=== PATIENT | male | born 2000 | race Caucasian/White ===

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

== ENCOUNTER 2020-05-30 14:28 | Emergency (ER) | payer MEDICAID, SELFPAY ==
[2020-05-30 15:16] VITALS: BP 164/91; PULSE 91; RESP 14; TEMP 37.1; O2SAT 99; BMI 32.5
--- NOTE | 2020-05-30 15:22 | XRR_ITS ---
PROCEDURE INFORMATION: Exam: XR Chest, 2 Views Exam date and time: 05/30/2020 3:42 PM Age: 19 years old Clinical indication: Cough; Left-sided chest pain; Additional info: Cough. Blood in sputum TECHNIQUE: Imaging protocol: XR of the chest Views: 2 views. COMPARISON: No relevant prior studies available. FINDINGS: Lungs: Unremarkable. No consolidation. Pleural spaces: Unremarkable. No pleural effusion. No pneumothorax. Heart/Mediastinum: Unremarkable. No cardiomegaly. Bones/joints: Unremarkable. XR/XR chest 2V* [id number] IMPRESSION: No acute findings.
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
[2020-05-30 16:00] VITALS: BP 164/91; PULSE 91; RESP 16; O2SAT 96
--- NOTE | 2020-05-31 11:58 | DCPLANNER ---
global logistics manager had message to schedule a follow up appointment for patient with pain management. global logistics manager can not make referrals to pain management from the ER. global logistics manager called patient and informed patient of this, pillowcase sewer informed patient that the referral for pain management would need to come from patients primary care physician. global logistics manager asked patient if he had a primary care, patient stated that he did. global logistics manager offered to make an appointment for patient, he stated that he would make the appointment.
== END 2020-05-30 16:10 | disposition home or self-care (01) ==
PROVIDERS: Emergency Provider Nurse Practitioner Family; PCP Family Medicine
DX: J40 Bronchitis, not specified as acute or chronic (principal); G89.29 Other chronic pain; M25.511 Pain in right shoulder; Z87.891 Personal history of nicotine dependence
CPT/HCPCS: 12345; 71046; 99281; 99282

== ENCOUNTER 2020-06-27 13:12 | Outpatient (CLI) | payer MEDICAID, SELFPAY ==
--- NOTE | 2020-06-27 13:21 | CT_ITS ---
WS: [id number] CT ABDOMEN WITH CONTRAST HISTORY: UPPER ABDOMINAL PAIN Contiguous single phase 5 mm axial imaging performed to the abdomen. Oral contrast has been provided. Coronal and sagittal reformats are submitted. All CT scans at [facility] use at least on e of these dose optimization techniques: automated exposure control; mA and/or kV adjustment per zahida ent size (includes targeted exams where dose is matched to clinical indication); or iterative reconst ruction. CONTRAST: Omnipaque 300; 95 mL IV. DLP: 905.32 mGycm COMPARISON: 2018 Lower thorax: Unremarkable. Liver: Normal. No intrahepatic dilatation. Gallbladder: Normal. Pancreas: Normal. Spleen: 13.4 cm in length. No mass. Adrenals: Normal. Right kidney: Normal. Left kidney: Normal. Aorta: Normal. GI tract: Normal. No adenopathy or free fluid. Abdominal wall: No hernia. Visualized osseous structures: Unremarkable. CT/CT abdomen w con* [id number] IMPRESSION: 1. Normal abdomen CT. 2. No hiatal hernia.
[2020-06-27] MEDS: iohexol 300 mg/mL 50 mL Btl PO (13:46)
[2020-06-27] MEDS: iohexol 300 mg/mL 100 mL Btl IV (14:24)
== END 2020-06-27 13:13 | disposition home or self-care (01) ==
LOC: RADWPI 13:18
PROVIDERS: PCP Family Medicine; Visit Provider Nurse Practitioner
DX: R10.10 Upper abdominal pain, unspecified (principal)
CPT/HCPCS: 74160; Q9967

== ENCOUNTER 2021-11-18 19:05 | Emergency (ER) | payer MEDICAID, SELFPAY ==
[2021-11-18] VITALS (7 sets, daily range): BP systolic 123–136; BP diastolic 52–68; PULSE 60–85; RESP 16–84; TEMP 37.1; O2SAT 97–100; BMI 28.4
--- NOTE | 2021-11-18 19:42 | ED_ITS ---
HPI - Chest Pain General: Chief Complaint: Chest Pain Stated Complaint: Dizzy, light headed, chest pain Time Seen by Provider: 11/18/21 19:42 History of Present Illness: 20-year-old gentleman presenting for chest pain that started at work. Sharp pressure in the middle discussed and mild associated shortness of breath. No other typical cardiac features. Denies frequent similar episodes in the past. Intensity symptoms is moderate. Course has persisted. No other specific changes in health, exacerbating, or alleviating factors identified. Onset (ago): hour(s) Timing of current episode: constant Prior episodes: No Onset: during exertion Pain location: substernal Severity: moderate Relieving factors: nothing Exacerbating factors: movement Review of Systems General: Reports: 10 or more systems reviewed and unremarkable except in HPI and below PFSH ED PFSH: Medical History No significant past medical history Surgical History No significant past surgical history Family History Other Cancer Diabetes Social History Smoking and tobacco status: former smoker Quit status (tobacco): has quit using tobacco Year quit tobacco: 2020 Alcohol intake: never Physical Exam Const: COMMON NORMALS: alert GENERAL APPEARANCE: cooperative and well developed HENMT: COMMON NORMALS: normocephalic and atraumatic HEAD & SCALP: norm ocephalic and atraumatic THROAT: posterior oropharynx normal Eye: COMMON NORMALS: conjunctivae normal CONJUNCTIVA: Yes conjunctivae normal SCLERA: sclerae normal Neck/C-Spine: COMMON NORMALS: supple GENERAL: Yes trachea midline Chest: CHEST: No localized rib tenderness with anteroposterior compression Resp: COMMON NORMALS: normal respiratory effort and clear to auscultation bilaterally EFFORT & INSPECTION: Yes able to speak in complete sentences AUSCULTATION: clear to auscultation bilaterally Cardio: COMMON NORMALS: regular rate and regular rhythm RATE: regular rate RHYTHM: regular rhythm GI: COMMON NORMALS: Soft to palpation PALPATION: Yes Soft to palpation and No Tenderness to palpation present (GI) Extremity: GENERAL: Yes normal exam except as noted and No edema Neuro: COMMON NORMALS: moves all extremities SENSORIUM/ORIENTATION: Yes alert and No Orientation impaired Psych: COMMON NORMALS: mental status grossly normal and Normal thought process present THOUGHT PROCESS: Normal thought process present Course Vital Signs: Vital signs: Vital Signs Temperature 98.7 F 11/18/21 19:13 Pulse Rate 63 11/18/21 22:00 Respiratory Rate 16 11/18/21 22:00 Blood Pressure 127/59 11/18/21 22:00 Pulse Oximetry 99 11/18/21 22:00 Oxygen Delivery Me thod 11/18/21 22:00 MDM - Chest Pain Medical Decision Making 20-year-old male presenting due to chest pain. Patient nontoxic on exam. Laboratory studies without obvious cause. EKG with interventricular delay, no STEMI. Delta troponin negative. Negative chest x-ray. Mildly improved with IV fluids. Patient without high risk features and no risk factors ordered satisfactory for outpatient management. Medical Records I reviewed the patient's medical records. Lab Data I reviewed the patient's lab results. : 11/18/21 19:45 11/18/21 19:45 Radiology Impressions Chest X-Ray 11/18/21 19:45 IMPRESSION: No acute findings. Laboratory Results WBC 9.7 10^3/uL (4.5-13.0) 11/18/21 19:45 RBC 5.03 10^6/uL (4.1-5.3) 11/18/21 19:45 Hgb 15.1 g/dL (11.7-16.6) 11/18/21 19:45 Hct 45.4 % (42.0-52.0) 11/18/21 19:45 MCV 90.3 fl (80-94) 11/18/21 19:45 MCH 30.0 pg (28.0-34.0) 11/18/21 19:45 MCHC 33.3 g/dL (30.0-36.0) 11/18/21 19:45 RDW 12.5 % (12.1-15.1) 11/18/21 19:45 Plt Count 193 10^3/cmm (130-400) 11/18/21 19:45 MPV 9.5 fL (7.4-10.4) 11/18/21 19:45 Neut % (Auto) 60.1 % 11/18/21 19:45 Lymph % (Auto) 29.0 % 11/18/21 19:45 Lee % (Auto) 6.4 % 11/18/21 19:45 Eos % (Auto) 3.5 % 11/18/21 19:45 Baso % (Auto) 0.8 % 11/18/21 19:45 Neut # (Auto) 5.81 10^3/uL (1.8-8.0) 11/18/21 19:45 Lymph # (Auto) 2.8 10^3/uL (1.5-6.5) 11/18/21 19:45 Lee # (Auto) 0.6 10^3/uL (0.2-0.9) 11/18/21 19:45 Eos # (Auto) 0.3 10^3/uL (0.0-0.8) 11/18/21 19:45 Baso # (Auto) 0.1 10^3/uL (0.0-0.1) 11/18/21 19:45 Nucleated RBC % (auto) 0 % 11/18/21 19:45 Nucleated RBCs # 0.0 /100WBC 11/18/21 19:45 Sodium 137 mmol/L (136-145) 11/18/21 19:45 Potassium 4.1 mmol/L (3.5-5.1) 11/18/21 19:45 Chloride 102 mmol/L (98-107) 11/18/21 19:45 Carbon Dioxide 27 mmol/L (22-29) 11/18/21 19:45 Anion Gap 12.1 (5-19) 11/18/21 19:45 BUN 10 mg/dL (6-20) 11/18/21 19:45 Creatinine 0.8 mg/dL (0.7-1.2) 11/18/21 19:45 GFR Calculation 123.2 mL/min (90-130) 11/18/21 19:45 Glucose 95 mg/dL (65-115) 11/18/21 19:45 Calculated Osmolality 283 mOsm/kg (285-295) L 11/18/21 19:45 Calcium 9.2 mg/dL (8.5-10.5) 11/18/21 19:45 Total Bilirubin 0.3 mg/dL (0.15-1.2) 11/18/21 19:45 AST 14 U/L (0-40) 11/18/21 19:45 ALT 16 U/L (0-41) 11/18/21 19:45 Alkaline Phosphatase 93 IU/L (40-130) 11/18/21 19:45 Troponin T Baseline 6 ng/L (0-15) 11/18/21 19:45 Troponin T 120 Minute 6.00 ng/L (0-15) 11/18/21 21:44 Delta Troponin T 0 ABS# (0-10) 11/18/21 21:44 NT-Pro-B Natriuret Pep 24 pg/mL (0-125) 11/18/21 19:45 Total Protein 6.6 g/dL (6.6-8.7) 11/18/21 19:45 Albumin 4.6 g/dL (3.5-5.2) 11/18/21 19:45 Globulin 2.0 g/dL (1.3-4.6) 11/18/21 19:45 Lipase 16 U/L (13-60) 11/18/21 19:45 Discharge Plan Discharge Patient Disposition: Home Clinical Impression: Chest pain, Dizziness Condition: Stable Prescriptions: No Action fluoxetine 20 mg capsule 20 mg PO DAILY Qty: 30 0RF Rx Instructions: administer in the morning and at noon/midday montelukast 10 mg tablet 10 mg PO DAILY omeprazole 40 mg capsule,delayed release(DR/EC) 40 mg PO DAILY albuterol sulfate [ProAir HFA] 90 mcg/actuation HFA aerosol inhaler 2 puff INHALATION Q6H PRN sucralfate 1 gram tablet 1 gm PO Q6H trazodone 50 mg tablet 50 mg PO .COMPLEX Rx Instructions: 50 mg PO 1-2 tabs at bedtime; ibuprofen 800 mg tablet 800 mg PO TID PRN (Reason: pain) Qty: 60 1RF hydrocodone-acetaminophen [[place]] 5-325 mg tablet 1 tab PO Q6H PRN (Reason: pain) Rx Instructions: RX DATE 04/11/20 #10 [facility] tramadol 50 mg tablet 50 mg PO TID Qty: 14 0RF Discharge Orders: Discharge ED (Routine); Ordered 11/18/21 Ordered By: Willie Ramos Referrals: Mukul Pérez DO [Primary Care Provider] - Discharge Diet: Usual diet Discharge Activity: Increase activity as tolerated Patient Instructions: Chest Pain (ED), Dizziness (ED) Activity Restrictions/Additional Instructions: Thank you for visiting the emergency department. You were seen and evaluated for dizziness and chest pain. The exact cause of your symptoms is unclear. This may be partly due to dehydration. Please ensure that you are staying hydrated. Please follow-up with a primary care provider, I will message case management for referral to primary care. Return to the emergency department for worsening symptoms or anything else that you are concerned about a feel needs emergency department evaluation. Stand Alone Forms: Work/School Release Coding Level of Care Code ED Supervisor Instant Pot[employer] Processing for Jerry German
--- NOTE | 2021-11-18 19:45 | XRR_ITS ---
PROCEDURE INFORMATION: Exam: XR Chest Exam date and time: 11/18/2021 8:52 PM Age: 20 years old Clinical indication: Injury or trauma; Fall; Blunt trauma (contusions or hematomas); Additional info: Cp TECHNIQUE: Imaging protocol: Radiologic exam of the chest. Views: 1 view. COMPARISON: CR XR chest 2V* [id number] 05/30/2020 3:52 PM FINDINGS: Lungs: Unremarkable. No consolidation. Pleural spaces: Unremarkable. No pleural effusion. No pneumothorax. Heart/Mediastinum: Unremarkable. No cardiomegaly. Bones/joints: Unremarkable. XR/XR chest 1V portable [id number] IMPRESSION: No acute findings.
--- NOTE | 2021-11-18 19:45 | ECG_ITS ---
[facility] Test Date: 2021-11-18 Pat Name: Sabino Hull Department: Room: Gender: Male General Purchasing Agent: : 2000 Requested By: Willie Ramos Order Number: [id number] Raji MD: Armaan Pacheco M.D. Measurements Intervals [place] Rate: 56 P: 32 AR: 169 QRS: 85 QRSD: 113 T: 52 QT: 427 QTc: 414 Interpretive Statements SINUS BRADYCARDIA WITH SINUS ARRHYTHMIA MODERATE INTRAVENTRICULAR CONDUCTION DELAY [110+ ms QRS DURATION] No previous ECG available for comparison Electronically Signed On 11-19-2021 10:34:38 CDT by Armaan Pacheco M.D. [email or web address] Materialsregency meridianCrossing Automationadena pike medical center.[employer]/store/[id number] f
[2021-11-18 19:54] LABS: Basophils # 0.1 10^3/uL (0.0-0.1); Basophils % 0.8 %; Eosinophils # 0.3 10^3/uL (0.0-0.8); Eosinophils % 3.5 %; Hematocrit 45.4 % (42.0-52.0); Hemoglobin 15.1 g/dL (11.7-16.6); Lymphocytes # 2.8 10^3/uL (1.5-6.5); Mean Corpuscular HGB Conc 33.3 g/dL (30.0-36.0); Mean Corpuscular Volume 90.3 fl (80-94); Mean Platelet Volume 9.5 fL (7.4-10.4); Monocytes # 0.6 10^3/uL (0.2-0.9); Monocytes % 6.4 %; Neutrophils # 5.81 10^3/uL (1.8-8.0); Neutrophils % 60.1 %; Nucleated Red Blood Cells % 0 %; Platelet Count 193 10^3/cmm (130-400); Red Blood Count 5.03 10^6/uL (4.1-5.3); Red Cell Distribution Width 12.5 % (12.1-15.1); White Blood Count 9.7 10^3/uL (4.5-13.0)
[2021-11-18] MEDS: sodium chloride 0.9% 1,000 ML 999 ML IV (20:00)
[2021-11-18 20:21] LABS: Troponin(5th) Baseline 6 ng/L (0-15)
[2021-11-18 20:31] LABS: Alanine Aminotransferase 16 U/L (0-41); Albumin Level 4.6 g/dL (3.5-5.2); Alkaline Phosphatase 93 IU/L (40-130); Anion Gap 12.1 (5-19); Aspartate Amino Transferase 14 U/L (0-40); Blood Urea Nitrogen 10 mg/dL (6-20); Calcium 9.2 mg/dL (8.5-10.5); Carbon Dioxide 27 mmol/L (22-29); Chloride 102 mmol/L (98-107); Glomerular Filtration Rate 123.2 mL/min (90-130); Glucose 95 mg/dL (65-115); Lipase 16 U/L (13-60); NT Pro B Type Natriuretic Pept 24 pg/mL (0-125); Osmolality Calculated 283 mOsm/kg (285-295); Potassium 4.1 mmol/L (3.5-5.1); Sodium 137 mmol/L (136-145); Total Bilirubin 0.3 mg/dL (0.15-1.2); Total Protein 6.6 g/dL (6.6-8.7)
--- NOTE | 2021-11-18 21:45 | ECG_ITS ---
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 Measurements Intervals [place] Rate: 56 P: 41 MT: 176 QRS: 85 QRSD: 116 T: 54 QT: 425 QTc: 414 Interpretive Statements SINUS BRADYCARDIA WITH SINUS ARRHYTHMIA MODERATE INTRAVENTRICULAR CONDUCTION DELAY [110+ ms QRS DURATION] No previous ECG available for comparison Electronically Signed On 11-19-2021 10:38:28 CDT by Armaan Pacheco M.D. [email or web address] [email or web address]'s choice medical center of smith countyConsumer Agent Portal (CAP)[email or web address].[employer]/store/[id number]
[2021-11-18 22:12] LABS: Troponin 5 2HR Delta 0 ABS# (0-10)
--- NOTE | 2021-11-21 11:00 | DCPLANNER ---
e business manager had message to speak with patient about getting established with a primary care physician. e business manager called patient at phone number [phone], unable to speak with patient at this time, unable to leave a voicemail.
== END 2021-11-18 22:53 | disposition home or self-care (01) ==
PROVIDERS: Emergency Provider Emergency Medicine; PCP Family Medicine
DX: R07.9 Chest pain, unspecified (principal); R42 Dizziness and giddiness; Z87.891 Personal history of nicotine dependence
CPT/HCPCS: 71045; 80053; 83690; 83880; 84484; 85025; 93005; 96360; 99285; J7030

== ENCOUNTER 2022-01-08 22:18 | Emergency (ER) | payer MEDICAID, SELFPAY ==
[2022-01-08 22:47] VITALS: BP 117/71; PULSE 98; RESP 18; TEMP 36.3; O2SAT 98
[2022-01-08 22:59] VITALS: BP 139/71; PULSE 74; RESP 18; O2SAT 96
[2022-01-08] MEDS: ondansetron 2 mg/ML SDV 2 mL 4 MG IVP (23:13)
[2022-01-08 23:19] LABS: Basophils # 0.1 10^3/uL (0.0-0.1); Basophils % 0.5 %; Eosinophils # 0.3 10^3/uL (0.0-0.8); Eosinophils % 2.9 %; Hemoglobin 15.6 g/dL (11.7-16.6); Lymphocytes # 2.3 10^3/uL (0.8-4.8); Mean Corpuscular HGB Conc 33.9 g/dL (30.0-36.0); Mean Corpuscular Hemoglobin 30.8 pg (28.0-34.0); Mean Corpuscular Volume 90.7 fl (80-94); Mean Platelet Volume 9.8 fL (7.4-10.4); Monocytes % 8.6 %; Neutrophils # 7.39 10^3/uL (1.8-7.7); Neutrophils % 66.7 %; Nucleated Red Blood Cells % 0 %; Platelet Count 213 10^3/cmm (130-400); Red Blood Count 5.07 10^6/uL (4.1-5.3); Red Cell Distribution Width 12.6 % (12.1-15.1); White Blood Count 11.1 10^3/uL (4.0-10.0)
[2022-01-08 23:55] LABS: Alanine Aminotransferase 29 U/L (0-41); Albumin Level 4.3 g/dL (3.5-5.2); Alkaline Phosphatase 99 U/L (40-130); Anion Gap 15.7 (5-19); Aspartate Amino Transferase 17 U/L (0-40); Blood Urea Nitrogen 11 mg/dL (6-20); Calcium 9.7 mg/dL (8.5-10.5); Carbon Dioxide 22 mmol/L (22-29); Chloride 102 mmol/L (98-107); Globulin 2.5 g/dL (1.3-4.6); Glomerular Filtration Rate 106.5 mL/min (90-130); Glucose 95 mg/dL (65-115); Lipase 15 U/L (13-60); Osmolality Calculated 281 mOsm/kg (285-295); Potassium 3.7 mmol/L (3.5-5.1); Sodium 136 mmol/L (136-145); Total Bilirubin 0.7 mg/dL (0.15-1.2); Total Protein 6.8 g/dL (6.6-8.7)
--- NOTE | 2022-01-09 01:23 | ED_ITS ---
HPI - Abdominal Pain General: Chief Complaint: Abdominal Pain Stated Complaint: ABD PAIN Time Seen by Provider: 01/08/22 22:54 Source: patient Mode of arrival: ambulatory Limitations: no limitations History of Present Illness: See nursing assessment. Patient with complaints of sharp epigastric pain that is intermittent since Saturday evening. Denies any fever. He denies any nausea, vomiting, diarrhea, constipation. He denies any urinary symptoms. Denies any melena or bright red blood in his stool. He states he does have a past medical history of GERD and takes omeprazole 40 mg daily for that. He denies any allergies to medications. He states he does smoke occasional cigarettes but denies alcohol use. He has had an appendectomy in the past. He states pain is only located in the epigastrium. He denies any other pain. Radiation: none Migration to: no migration Exacerbating factors: eating Associated Symptoms: Denies chills, fever(s), hematochezia, hematemesis, melena, nausea and vomiting Treatments prior to arrival: other (Takes 40 mg of omeprazole daily.) Review of Systems Const: Denies: fever(s) or chills Eyes: Denies: change in vision ENMT: Denies: throat pain Card: Denies: chest pain or palpitations Resp: Denies: dyspnea or wheezing GI: Reports: abdominal pain; Denies: nausea, vomiting, hematemesis, hematochezia, melena or mucus in stool : Denies: flank pain Musc: Denies: neck pain or back pain Skin/Breast: Denies: rash or pruritus Neuro: Denies: headache(s) or numbness in extremities Psych: Denies: anxiety Loi/Lymph: Denies: enlarged lymph nodes PFSH ED PFSH: Medical History No significant past medical history Surgical History No significant past surgical history Family History Other Cancer Diabetes Social History Smoking and tobacco status: former smoker Quit status (tobacco): has quit using tobacco Year quit tobacco: 2019 Alcohol intake: never Supplemental [facility] Information: Possible history of GERD Physical Exam Const: COMMON NORMALS: no acute distress, patient oriented x3, alert and well nourished GENERAL APPEARANCE: cooperative HENMT: COMMON NORMALS: normocephalic and atraumatic HEAD & SCALP: normocephalic and atraumatic Eye: COMMON NORMALS: EOMs intact bilaterally Neck/C-Spine: COMMON NORMALS: full ROM, no lymphadenopathy, supple and no JVD Lymph: LYMPHATIC: no lymphadenopathy noted Chest: COMMONS NORMALS: normal inspection of the chest and normal palpation of entire chest wall Resp: COMMON NORMALS: normal respiratory effort, No retractions, No use of accessory muscles and clear to auscultation bilaterally AUSCULTATION: clear to auscultation bilaterally Cardio: COMMON NORMALS: no JVD, regular rate, regular rhythm and Peripheral pulses 2+ throughout RATE: regular rate RHYTHM: regular rhythm PERIPHERAL PULSES: Peripheral pulses 2+ throughout GI: COMMON NORMALS: Normal to inspection, nondistended, normoactive bowel sounds present and Soft to palpation PALPATION: Yes Soft to palpation OTHER: Moderate epigastric abdominal pain with deep palpation. No masses palpated no bruits. No pulsatile masses. No hepatosplenomegaly. No guarding or rebound. : COMMON NORMALS: Yes no CVA tenderness BLADDER/KIDNEY EXAM: Yes no CVA tenderness Back/Pelvis: COMMON NORMALS: no CVA tenderness Extremity: COMMON NORMALS: normal to inspection and full ROM Neuro: COMMON NORMALS: patient oriented x3, CN's II-XII intact bilaterally, moves all extremities, no focal motor deficits and no sensory deficits noted SENSORIUM/ORIENTATION: Yes alert Psych: COMMON NORMALS: mental status grossly normal, Normal thought process present, cooperative, normal affect and speech normal SPEECH: Yes normal speech THOUGHT PROCESS: Normal thought process present Skin: COMMON NORMALS: no rashes or lesions noted GENERAL SKIN EXAM: no rashes or lesions noted Course Vital Signs: Vital signs: Vital Signs Temperature 97.4 F L 01/08/22 22:47 Pulse Rate 74 01/08/22 22:59 Respiratory Rate 18 01/08/22 22:59 Blood Pressure 139/71 01/08/22 22:59 Pulse Oximetry 96 01/08/22 22:59 Oxygen Delivery Me thod 01/08/22 22:59 MDM - Abdominal Pain Medical Decision Making Abdominal pain likely due to acute gastritis versus early peptic ulcer disease. Patient does have a history of GERD and takes omeprazole 40 mg daily. Will have patient double up on his dose for for 5 days and add Carafate. If patient has no improvement next 2 to 3 days I suggested he take Protonix instead of omeprazo le for his stomach. He will also follow-up with his family doctor later this week to make sure symptoms are improving. Patient has a past medical history of a remote appendectomy. Lab Data : 01/08/22 23:02 01/08/22 23:32 Labs/Radiology: Laboratory Results WBC 11.1 10^3/uL (4.0-10.0) H 01/08/22 23: RBC 5.07 10^6/uL (4.1-5.3) 01/08/22 23: Hgb 15.6 g/dL (11.7-16.6) 01/08/22 23: Hct 46.0 % (42.0-52.0) 01/08/22 23: MCV 90.7 fl (80-94) 01/08/22 23:02 MCH 30.8 pg (28.0-34.0) 01/08/22 23: MCHC 33.9 g/dL (30.0-36.0) 01/08/22 23:02 RDW 12.6 % (12.1-15.1) 01/08/22 23:02 Plt Count 213 10^3/cmm (130-400) 01/08/22 23: MPV 9.8 fL (7.4-10.4) 01/08/22 23:02 Neut % (Auto) 66.7 % 01/08/22 23:02 Lymph % (Auto) 21.0 % 01/08/22 23:02 Bay % (Auto) 8.6 % 01/08/22 23: Eos % (Auto) 2.9 % 01/08/22 23: Baso % (Auto) 0.5 % 01/08/22 23:02 Neut # (Auto) 7.39 10^3/uL (1.8-7.7) 01/08/22 23: Lymph # (Auto) 2.3 10^3/uL (0.8-4.8) 01/08/22 23:02 Bay # (Auto) 1.0 10^3/uL (0.2-0.9) H 01/08/22 23:02 Eos # (Auto) 0.3 10^3/uL (0.0-0.8) 01/08/22 23:02 Baso # (Auto) 0.1 10^3/uL (0.0-0.1) 01/08/22 23:02 Nucleated RBC % (auto) 0 % 01/08/22 23:02 Nucleated RBCs # 0.0 /100WBC 01/08/22 23:02 Sodium 136 mmol/L (136-145) 01/08/22 23:32 Potassium 3.7 mmol/L (3.5-5.1) 01/08/22 23:32 Chloride 102 mmol/L (98-107) 01/08/22 23:32 Carbon Dioxide 22 mmol/L (22-29) 01/08/22 23:32 Anion Gap 15.7 (5-19) 01/08/22 23:32 BUN 11 mg/dL (6-20) 01/08/22 23:32 Creatinine 0.9 mg/dL (0.7-1.2) 01/08/22 23:32 GFR Calculation 106.5 mL/min (90-130) 01/08/22 23:32 Glucose 95 mg/dL (65-115) 01/08/22 23:32 Calculated Osmolality 281 mOsm/kg (285-295) L 01/08/22 23:32 Calcium 9.7 mg/dL (8.5-10.5) 01/08/22 23:32 Total Bilirubin 0.7 mg/dL (0.15-1.2) 01/08/22 23:32 AST 17 U/L (0-40) 01/08/22 23:32 ALT 29 U/L (0-41) 01/08/22 23:32 Alkaline Phosphatase 99 U/L (40-130) 01/08/22 23:32 Total Protein 6.8 g/dL (6.6-8.7) 01/08/22 23:32 Albumin 4.3 g/dL (3.5-5.2) 01/08/22 23:32 Globulin 2.5 g/dL (1.3-4.6) 01/08/22 23:32 Lipase 15 U/L (13-60) 01/08/22 23:32 Other Data I believe patient's pain is likely due to acute gastritis. I do not believe patient warrants CT scan of the abdomen at this time. Discharge Plan Discharge Patient Disposition: Home Clinical Impression: Abdominal pain, acute, epigastric Acute gastritis without bleeding Qualifiers: Gastritis type: superficial Qualified Code(s): K29.00 - Acute gastritis without bleeding Condition: Stable Prescriptions: New Carafate 1 gram tablet 1 g PO Q6H Qty: 28 2RF Rx Instructions: for stomach Protonix 40 mg tablet,delayed release (DR/EC) 40 mg PO DAILY Qty: 14 2RF hydrocodone-acetaminophen 5-325 mg tablet 1 tab PO Q6H PRN (Reason: pain) Qty: 8 0RF No Action fluoxetine 20 mg capsule 20 mg PO DAILY Qty: 30 0RF Rx Instructions: administer in the morning and at noon/midday montelukast 10 mg tablet 10 mg PO DAILY omeprazole 40 mg capsule,delayed release(DR/EC) 40 mg PO DAILY albuterol sulfate [ProAir HFA] 90 mcg/actuation HFA aerosol inhaler 2 puff INHALATION Q6H PRN sucralfate 1 gram tablet 1 gm PO Q6H trazodone 50 mg tablet 50 mg PO .COMPLEX Rx Instructions: 50 mg PO 1-2 tabs at bedtime; ibuprofen 800 mg tablet 800 mg PO TID PRN (Reason: pain) Qty: 60 1RF hydrocodone-acetaminophen [[place]] 5-325 mg tablet 1 tab PO Q6H PRN (Reason: pain) Rx Instructions: RX DATE 04/11/20 #10 FROM [facility] tramadol 50 mg tablet 50 mg PO TID Qty: 14 0RF Discharge Orders: Discharge ED (Routine); Ordered 01/09/22 Ordered By: Jonathan Vila Referrals: Mukul Pérez DO [Primary Care Provider] - 1-3 days (For recheck) Discharge Diet: Advance as tolerated Discharge Activity: Increase activity as tolerated Patient Instructions: Gastritis (ED), Abdominal Pain (ED), Opioid Safety, Pain Management Activity Restrictions/Additional Instructions: Increase omeprazole to 1 tablet twice a day for the next 5 days. After 5 days go back to 1 tablet daily. If this is not effective for your pain, switch from omeprazole to Protonix for antacid for your stomach. Take Carafate 4 times a day. May take hydrocodone for breakthrough pain. Follow-up with your family doctor this week for recheck. Coding Level of Care Code ED Health Information Technologist for [facility] Exam Comprehensive
[2022-01-09] MEDS: pantoprazole 40 mg SDV IVP (01:35)
[2022-01-09 01:37] VITALS: BP 119/67; PULSE 67; RESP 16; O2SAT 95
== END 2022-01-09 01:43 | disposition home or self-care (01) ==
PROVIDERS: Emergency Provider Family Medicine; PCP Family Medicine
DX: R10.13 Epigastric pain (principal); K21.9 Gastro-esophageal reflux disease without esophagitis; Z87.891 Personal history of nicotine dependence
CPT/HCPCS: 80053; 83690; 85025; 96374; 96375; 99284; C9113; J2405